=== PATIENT | female | born 1985 | race Caucasian/White ===

== ENCOUNTER 2016-10-30 13:28 | Outpatient (CLI) | payer MEDICARE, MEDICAID | END 2016-10-30 23:59 | disposition home or self-care (01) | DX: M79.7 Fibromyalgia (principal); M46.1 Sacroiliitis, not elsewhere classified; M47.26 Other spondylosis with radiculopathy, lumbar region; K50.119 Crohn's disease of large intestine with unspecified complications; G89.4 Chronic pain syndrome; F44.5 Conversion disorder with seizures or convulsions; F12.10 Cannabis abuse, uncomplicated ==

== ENCOUNTER 2017-01-26 13:58 | Emergency (ER) | payer MEDICARE, MEDICAID ==
[2017-01-26 14:08] VITALS: BP 122/78
[2017-01-26] MEDS ORDERED: DEXAMETHASONE 10 MG/ML VIAL PO STA (15:38)
--- NOTE | 2017-01-26 15:41 | ED Physician Documentation ---
PD HPI BACK PAIN - Stated complaint Stated Complaint: BACK PX/GLF - Chief complaint Chief Complaint: Back Pain - History obtained from History obtained from: Patient - History of Present Illness Timing - onset: How many days ago (3) Timing - duration: Days (3) Timing - details: Abrupt onset, Still present Location: Lower, Right Quality: Pain, Spasm, Sharp, Similar to prior episodes Associated symptoms: No: Fever, Weakness, Numbness, Incontinent of urine, Unable to urinate, Hematuria, Incontinent of stool Improves with: Rest, Ice, Position Worsened by: Movement Contributing factors: Other (The patient was in the shower and she slipped and did the splits and she had acute and persistent pain in the lower back radiating to the right thigh.) Similar symptoms before: Diagnosis (the patient has ankelosing spondylitis.) Recently seen: Not recently seen - Additional information Additional information: 32-year-old female with a history of ankylosing spondylitis has been without the use of her cane for about 3 months and has been doing well with physical therapy. When she was in the shower on Wednesday about 3 days ago she slipped with her feet and her feet spread apart and she strained her right lower back. She now has pain radiating from her lower back into the right thigh. She does not have any bowel or bladder symptoms she does not have any numbness or weakness to the lower extremity. Review of Systems Constitutional: denies: Fever Respiratory: denies: Cough GI: denies: Vomiting : denies: Dysuria, Frequency, Incontinent Skin: denies: Rash Musculoskeletal: reports: Back pain, Extremity pain. denies: Neck pain, Joint pain, Extremity swelling Neurologic: denies: Generalized weakness, Focal weakness, Numbness PD PAST MEDICAL HISTORY - Past Medical History Respiratory: Asthma Neuro: Seizure disorder GI: Crohn's disease Psych: Anxiety, Panic attacks, Post traumatic stress disorder Musculoskeletal: Fibromyalgia, Chronic back pain - Past Surgical History Past Surgical History: Yes General: Cholecystectomy - Present Medications Home Medications: Ambulatory Orders Medication Instructions Recorded Confirmed clonazePAM [KlonoPIN] 1 mg PO TID PRN 04/13/16 01/26/17 Cyclobenzaprine [Flexeril] 10 mg PO TID PRN #20 tablet 01/26/17 Oxycodone HCl/Acetaminophen 1 - 2 each PO Q6HR PRN #20 tablet 01/26/17 [Percocet 5-325 mg Tablet] Tens Unit Electrodes [Tens 1 each MC DAILY 01/26/17 01/26/17 Replacement Body Pads] - Allergies Allergies/Adverse Reactions: Allergies Allergy/AdvReac Type Severity Reaction Status Date / Time hydrocodone Allergy Unknown Verified 01/26/17 14:08 NSAIDS (Non-Steroidal Allergy Unknown Verified 01/26/17 14:08 Anti-Inflamma - Social History Does the pt smoke?: Yes Smoking Status: Current every day smoker PD ED PE NORMAL - Vitals Vital signs reviewed: Yes (normal ) - General General: Alert and oriented X 3, Well developed/nourished, Other (The patient appears to be in pain with smash fixer tone and flattened affect.) - HEENT HEENT: Atraumatic, PERRL - Neck Neck: Supple, no meningeal sign - Respiratory Respiratory: No respiratory distress - Back Back: Other (There is tenderness to the lower lumbar paraspinous muscles on the right side there is not central spine tenderness. The tenderness extends into the sciatic notch on the right.) - Derm Derm: Normal color, Warm and dry, No rash - Extremities Extremities: No deformity, No edema - Neuro Neuro: No motor deficit, No sensory deficit - Psych Psych: Normal mood Results - Vitals Vitals: Vital Signs - 24 hr 01/26/17 14:05 Temperature 36.4 C L Heart Rate 92 Respiratory 12 Rate Blood Pressure 122/78 O2 Saturation 100 Oxygen O2 Source Room air PD MEDICAL DECISION MAKING - ED course Complexity details: reviewed old records, considered differential, d/w patient ED course: 32-year-old female with acute right-sided sciatica is given 10 mg of dexamethasone here in the emergency department we will put her on some Percocet and Flexeril as well. She is encouraged to use ice and stretch to avoid using heating pack and to hydrate. Departure - Departure Disposition: 01 Home, Self Care Clinical Impression: Sciatica of right side Condition: Stable Instructions: ED Sciatica, ED Spasm Back No Trauma Follow-Up: Jessica Dsozua MD [Primary Care Provider] - Prescriptions: Oxycodone HCl/Acetaminophen [Percocet 5-325 mg Tablet] 1 - 2 each PO Q6HR PRN # 20 tablet PRN Reason: Pain Cyclobenzaprine [Flexeril] 10 mg PO TID PRN #20 tablet PRN Reason: Spasms
[2017-01-26] MEDS ORDERED: DEXAMETHASONE 10 MG/ML VIAL ONE (15:49)
== END 2017-01-26 15:58 | disposition home or self-care (01) ==
LOC: ED 13:58
DX: M54.41 Lumbago with sciatica, right side (principal); W18.2XXA Fall in (into) shower or empty bathtub, initial encounter; Y92.012 Bathroom of single-family (private) house as the place of occurrence of the external cause; J45.909 Unspecified asthma, uncomplicated; K50.90 Crohn's disease, unspecified, without complications; M79.7 Fibromyalgia; F17.200 Nicotine dependence, unspecified, uncomplicated
CPT/HCPCS: 99282; 99283

== ENCOUNTER 2017-04-18 13:34 | Emergency (ER) | payer MEDICARE, MEDICAID ==
[2017-04-18 13:45] VITALS: BP 120/21
[2017-04-18] MEDS ORDERED: oxyCOD/ACETAMIN 5 MG/325 MG TABLET PO STA (13:57)
[2017-04-18] MEDS ORDERED: DEXAMETHASONE 10 MG/ML VIAL PO STA (13:57)
--- NOTE | 2017-04-18 14:00 | ED Physician Documentation ---
History of Present Illness - Stated complaint Stated Complaint: HIP PAIN - Chief complaint Chief Complaint: Ext Problem - History obtained from History obtained from: Patient - History of Present Illness Timing: Other (32-year-old woman with long-standing back pain got worse 2 weeks ago in physical therapy, felt a pop and now has persistent severe pain radiating down the front of the thigh to the knee into the inside of the foot without weakness, numbness, or tingling. She does not have any bowel or bladder incontinence or fevers.) Review of Systems Constitutional: denies: Fever, Chills GI: denies: Abdominal Pain, Nausea, Vomiting : denies: Now EGA PD PAST MEDICAL HISTORY - Past Medical History Past Medical History: Yes Respiratory: Asthma Neuro: Seizure disorder GI: Crohn's disease Psych: Anxiety, Panic attacks, Post traumatic stress disorder Musculoskeletal: Fibromyalgia, Chronic back pain - Past Surgical History Past Surgical History: Yes General: Cholecystectomy - Present Medications Home Medications: Ambulatory Orders Medication Instructions Recorded Confirmed clonazePAM [KlonoPIN] 1 mg PO TID PRN 04/13/16 04/18/17 Tens Unit Electrodes [Tens 1 each MC DAILY 01/26/17 04/18/17 Replacement Body Pads] Oxycodone HCl/Acetaminophen 1 - 2 tab PO Q4H PRN #15 tablet 04/18/17 [Percocet 5-325 mg Tablet] - Allergies Allergies/Adverse Reactions: Allergies Allergy/AdvReac Type Severity Reaction Status Date / Time hydrocodone Allergy Unknown Verified 04/18/17 13:45 NSAIDS (Non-Steroidal Allergy Unknown Verified 04/18/17 13:45 Anti-Inflamma - Social History Does the pt smoke?: Yes Smoking Status: Current every day smoker Does the pt drink ETOH?: No Does the pt have substance abuse?: No - Immunizations Immunizations are current?: Yes - POLST Patient has POLST: No PD ED PE NORMAL - Vitals Vital signs reviewed: Yes - General General: Alert and oriented X 3, Other (Appears uncomfortable, especially with motion) - Abdomen Abdomen: Soft, Non tender - Back Back: Other (Tender to the paralumbar musculature in the low back.) - Extremities Extremities: Other (She has hyperesthesia in the anterior right leg and lateral calf, medial calf sensation is symmetric. Reflexes are symmetric.) - Neuro Neuro: Alert and oriented X 3, Normal speech - Psych Psych: Normal mood, Normal affect Results - Vitals Vitals: Vital Signs - 24 hr 04/18/17 13:39 Temperature 36.3 C L Heart Rate 86 Respiratory 16 Rate Blood Pressure 120/21 L O2 Saturation 100 Oxygen O2 Source Room air PD MEDICAL DECISION MAKING - ED course ED course: This patient has seemingly uncomplicated musculoskeletal back pain. The patient has no "red flags." Specifically denies IV drug use, fevers, incontinence, saddle anesthesia. Spinal epidural abscess was considered, given that the patient has no fever, is not diabetic, has no spinal tenderness, does not use IV drugs, and has no bilateral neurologic symptoms, the diagnosis of spinal epidural abscess is considered exceedingly unlikely. The [place] prescription monitoring program was queried with regard to this patient. No concerning findings were found. Departure - Departure Disposition: 01 Home, Self Care Clinical Impression: Sciatica of right side Condition: Good Record reviewed to determine appropriate education?: Yes Instructions: ED Sciatica Prescriptions: Oxycodone HCl/Acetaminophen [Percocet 5-325 mg Tablet] 1 - 2 tab PO Q4H PRN #15 tablet PRN Reason: Pain Comments: Call your doctor to arrange a follow-up appointment, make the next available appointment. In the interim, return anytime if worse or if new symptoms develop. Do not drink or drive while taking narcotic pain medication. Note that many narcotic pain relievers also contain Tylenol/acetaminophen. Please ensure that your total dose of acetaminophen from all sources does not exceed 3 g (3000 mg) per day. You may get constipated while on this medication. Take a stool softener such as Colace twice a day while you are on it. Also add an [id number] laxative such as senna or MiraLAX on any day that you do not have a bowel movement. If you received a narcotic pain medication or sedative while in the emergency department, do not drive for the next 24 hours.
[2017-04-18] MEDS ORDERED: oxyCOD/ACETAMIN 5 MG/325 MG TABLET PO ONE (14:04)
[2017-04-18] MEDS ORDERED: DEXAMETHASONE 10 MG/ML VIAL ONE (14:05)
== END 2017-04-18 14:15 | disposition home or self-care (01) ==
LOC: ED 13:34
DX: M54.41 Lumbago with sciatica, right side (principal); J45.909 Unspecified asthma, uncomplicated; G40.909 Epilepsy, unspecified, not intractable, without status epilepticus; K50.90 Crohn's disease, unspecified, without complications; M79.7 Fibromyalgia; F17.200 Nicotine dependence, unspecified, uncomplicated
CPT/HCPCS: 99283; A9270

== ENCOUNTER 2017-08-17 08:00 | Outpatient (CLI) | payer MEDICARE, MEDICAID | END 2017-08-17 08:01 | disposition home or self-care (01) | LOC: LAB.WCP 08:00 | PROVIDERS: ATTEND Family Medicine | DX: C40.21 Malignant neoplasm of long bones of right lower limb (principal) | CPT/HCPCS: 36415; 85651 ==

== ENCOUNTER 2018-04-17 13:00 | Emergency (ER) | payer MEDICARE, MEDICAID ==
[2018-04-17 13:16] VITALS: BP 128/73
[2018-04-17] MEDS ORDERED: LIDOCAINE PATCH 5% TOP PRN (14:22)
[2018-04-17] MEDS ORDERED: oxyCODONE 5 MG TABLET PO STA (14:44)
--- NOTE | 2018-04-17 16:22 | XRAY Report ---
Reason: groin and prox femur pain, hx stroma surgery Procedure Date: 04/17/2018 Accession Number: [id number] / [id number] Procedure: XR - Femur 2V RT CPT Code: FULL RESULT: EXAM: RIGHT FEMUR RADIOGRAPHY. EXAM DATE: 04/17/2018 03:18 PM. CLINICAL HISTORY: Right groin and proximal femur pain. History of stroma surgery in October 2017. COMPARISON: Femur 2 view right 06/21/2017 10:37 AM, lower extremity, no joint without contrast 05/25/2017 1:09 PM. TECHNIQUE: 2 views. FINDINGS: Bones: There is a sclerotic bony focus in the proximal femoral shaft, with surrounding lucency. There is thickening of the cortex and surrounding sclerosis. The sclerotic focus appears eccentric, and may lie within the cortex. The findings are suggestive of an osteoid osteoma. The differential diagnosis includes postoperative change and osteomyelitis. There is mild sclerosis and cortical thickening in this region on the prior x-ray from 06/21/2017. Joints: The joint space of the right hip is preserved. Soft Tissues: Normal. No soft tissue swelling. IMPRESSION: Appearances in the proximal femur are suggestive of an osteoid osteoma. The differential diagnosis includes postoperative change, and osteomyelitis. RADIA
--- NOTE | 2018-04-17 16:34 | ED Physician Documentation ---
History of Present Illness - Stated complaint Stated Complaint: RT LEG/HIP PX - Chief complaint Chief Complaint: Ext Problem - Additonal information Additional information: hx from pt 33 female hx surgery R femur to remove a stroma (non malignant) at [facility] in October doing well recently increased pain under surgical scar (prox lateral thigh) but also to inguinal region near hip flexor tendon no fever on injury no skin infection she feels the cement may be dislodged Review of Systems Constitutional: denies: Fever, Chills Cardiac: denies: Chest pain / pressure Respiratory: denies: Dyspnea GI: denies: Abdominal Pain Musculoskeletal: reports: Extremity pain PD PAST MEDICAL HISTORY - Past Medical History Past Medical History: Yes Respiratory: Asthma GI: Crohn's disease Psych: Anxiety, Panic attacks, Post traumatic stress disorder Musculoskeletal: Fibromyalgia, Chronic back pain - Past Surgical History Past Surgical History: Yes General: Cholecystectomy - Present Medications Home Medications: Ambulatory Orders Medication Instructions Recorded Confirmed clonazePAM [KlonoPIN] 1 mg PO TID PRN 04/13/16 04/18/17 Tens Unit Electrodes [Tens 1 each MC DAILY 01/26/17 04/18/17 Replacement Body Pads] Oxycodone HCl/Acetaminophen 1 - 2 tab PO Q4H PRN #15 tablet 04/18/17 [Percocet 5-325 mg Tablet] Lidocaine Patch 5% [Lidoderm Patch] 1 each TOP DAILY PRN #10 patch 04/17/18 Oxycodone HCl/Acetaminophen 1 each PO Q6HR PRN #15 tablet 04/17/18 [Percocet 5-325 mg Tablet] - Allergies Allergies/Adverse Reactions: Allergies Allergy/AdvReac Type Severity Reaction Status Date / Time hydrocodone Allergy Unknown Verified 04/18/17 13:45 NSAIDS (Non-Steroidal Allergy Unknown Verified 04/18/17 13:45 Anti-Inflamma - Social History Does the pt smoke?: Yes Smoking Status: Current every day smoker Does the pt drink ETOH?: No Does the pt have substance abuse?: No - Immunizations Immunizations are current?: Yes - POLST Patient has POLST: No PD ED PE NORMAL - Vitals Vital signs reviewed: Yes - Cardiac Cardiac: RRR - Respiratory Respiratory: No respiratory distress, Clear bilaterally - Extremities Extremities: Other (RLE - no deformity, no erythema, no warmth, no open sores, storng pedal pulse, TTP lateral R thigh under scar and also to inguinal region with a single minimally tender smooth and mobile inguinal node) Results - Vitals Vitals: Vital Signs - 24 hr 04/17/18 13:11 Temperature 36.9 C Heart Rate 99 Respiratory 18 Rate Blood Pressure 128/73 O2 Saturation 96 Oxygen O2 Source Room air PD MEDICAL DECISION MAKING - ED course ED course: pt has an BENSON which I reviewed she was rxed percocet after her surgery in October and then gradually weaned off by PMD last rx January no ER visits at all since her surgery and all rx by her PMD given that there is a potentially new bone lesion which would be excrutiantingly painful, feel in this case it is appropriate to rx a few perocet for the pt until she can make fup with her surgeons at [facility] and her PMD can resume responsibility for any controlled substance rx - Sepsis Event Vital Signs: Vital Signs - 24 hr 04/17/18 13:11 Temperature 36.9 C Heart Rate 99 Respiratory 18 Rate Blood Pressure 128/73 O2 Saturation 96 Oxygen O2 Source Room air Departure - Departure Disposition: 01 Home, Self Care Clinical Impression: Abnormal x-ray Condition: Good Follow-Up: Jessica Dsouza MD [Primary Care Provider] - Prescriptions: Oxycodone HCl/Acetaminophen [Percocet 5-325 mg Tablet] 1 each PO Q6HR PRN #15 tablet PRN Reason: Severe Pain Lidocaine Patch 5% [Lidoderm Patch] 1 each TOP DAILY PRN #10 patch PRN Reason: Pain Comments: The xray does appear abnormal. The radiologist is not certain if there is a new bone lesion called osteoid osteoma or if these are all post operative changes, or (less likely given your exam) a bone infection You will need to follow up with your specialist at the [facility] We have given you copies of your xrays to take with you. And I have prescribed pain medication to ease your pain until you can be seen. I prescribed lidocaine patches and percocet. Percocet is a controlled substance and should only be used for very severe pain. It can be addicting. Narcotics are highly regulated and should not be prescribed by different doctors. So, after this weekend, your PMD will need to be the provider to determine the need and prescription for any future narcotics
== END 2018-04-17 17:18 | disposition home or self-care (01) ==
LOC: ED 13:00
DX: R93.7 Abnormal findings on diagnostic imaging of other parts of musculoskeletal system (principal); M25.552 Pain in left hip; F17.200 Nicotine dependence, unspecified, uncomplicated
CPT/HCPCS: 73552; 99283; A9270

== ENCOUNTER 2019-05-16 14:20 | Emergency (ER) | payer MEDICARE, MEDICAID ==
--- NOTE | 2019-05-16 15:05 | ED Physician Documentation ---
History of Present Illness - Stated complaint Stated Complaint: R KNEE PX - Chief complaint Chief Complaint: Ext Problem - Additonal information Additional information: This is a 34-year-old female with history of Crohn's and a mass or tumor in the muscle and proximal femur which was surgically excised earlier in the year, who presents with pain around her knee. Patient states that she has been going to physical therapy, and after activity such as sitting up ands getting out of a chair she has some pain in her distal quadriceps. Her physical therapist thinks this is related to the strengthening and use of her quadriceps, the patient has been having some pain in this region for 2.5 weeks and she is hoping to have her pain controlled. She denies any weakness or tingling in the leg. She has been taking Tylenol, and 5 mg of Flexeril at night. She states she has an allergy to nonsteroidal anti-inflammatories and methocarbamol. Review of Systems Constitutional: denies: Fever Musculoskeletal: reports: Extremity pain PD PAST MEDICAL HISTORY - Past Medical History Respiratory: Asthma GI: Crohn's disease Psych: Anxiety, Panic attacks, Post traumatic stress disorder Musculoskeletal: Fibromyalgia, Chronic back pain - Past Surgical History Past Surgical History: Yes General: Cholecystectomy - Present Medications Home Medications: Ambulatory Orders Medication Instructions Recorded Confirmed Tens Unit Electrodes [Tens 1 each MC DAILY 01/26/17 04/18/17 Replacement Body Pads] Acetaminophen [Tylenol Extra 06/24/18 Strength] Methocarbamol 06/24/18 Multivitamin [Multiple Vitamins] 06/24/18 Ondansetron Odt [Zofran] 4 mg TL Q6H PRN #10 tablet 06/24/18 Oxycodone HCl/Acetaminophen 1 - 2 each PO Q6H PRN #14 tablet 06/24/18 [Percocet 5-325 mg Tablet] traZODone [Desyrel] 06/24/18 Cyclobenzaprine [Flexeril] 10 mg PO TID PRN #20 tablet 05/16/19 Lidocaine Ointment 5% [Xylocaine 1 applic TOP DAILY PRN 5 Days #1 05/16/19 Ointment 5%] tube - Allergies Allergies/Adverse Reactions: Allergies Allergy/AdvReac Type Severity Reaction Status Date / Time hydrocodone Allergy Unknown Verified 06/24/18 18:30 NSAIDS (Non-Steroidal Allergy Unknown Verified 06/24/18 18:30 Anti-Inflamma - Social History Does the pt smoke?: Yes Smoking Status: Current every day smoker Does the pt drink ETOH?: No Does the pt have substance abuse?: No - Immunizations Immunizations are current?: Yes - POLST Patient has POLST: No PD ED PE NORMAL - Vitals Vital signs reviewed: Yes - General General: Alert and oriented X 3, No acute distress - HEENT HEENT: PERRL - Neck Neck: Supple, no meningeal sign - Cardiac Cardiac: Other (Regular rate rhythm on my exam) - Respiratory Respiratory: No respiratory distress - Abdomen Abdomen: Non distended - Derm Derm: Warm and dry - Extremities Extremities: Other (Over the right proximal thigh there is a well-healed surgical incision. The knees appear symmetric bilaterally. There is no pain along the knee joint, patient has good strength with knee extension and flexion, ankle dorsiflexion and plantarflexion. She has some tenderness of the distal quadriceps muscle. No rash or bruising, no erythema. No pain with passive range of motion of the knee. Limb is neurovascularly intact.) - Neuro Neuro: Alert and oriented X 3 - Psych Psych: Normal mood, Normal affect Results - Vitals Vitals: Oxygen O2 Source Room air - Rads (name of study) Knee XR R Radiology: Other (No acute fracture or dislocation.) PD MEDICAL DECISION MAKING - ED course ED course: Pt presents with somewhat exacerbated sub-acute to chronic leg pain. The pain is anterior and she has no redness or swelling to suggest DVT. XR is unremarkable. It does sound like strain/overuse injury, and she is being followed by a provider and PT for this. I recommended supportive care, rest, ice, and continued follow up with her outpatient providers. I prescribed lidocaine and flexeril. I discussed return precautions and pt was discharged home. Departure - Departure Disposition: 01 Home, Self Care Clinical Impression: Right thigh pain Condition: Good Instructions: ED RICE Follow-Up: Your,PCP [Other] Prescriptions: Cyclobenzaprine [Flexeril] 10 mg PO TID PRN #20 tablet PRN Reason: Spasms Lidocaine Ointment 5% [Xylocaine Ointment 5%] 1 applic TOP DAILY PRN 5 Days #1 tube PRN Reason: Pain Comments: You were seen today for thigh/knee pain. Your x-ray does not show signs of fracture. This may be related to overuse or strain/sprain. Please follow-up with your primary care provider and PCP, and consider seeing a sports medicine provider given your ongoing pain in this region. You can try taking Flexeril for your discomfort in addition to the Tylenol. If you develop signs of infec tion or other concerning symptoms please return to the emergency department. Discharge Date/Time: 05/16/19 16:34
--- NOTE | 2019-05-16 16:01 | XRAY Report ---
Reason: R knee pain, hx prox femur mass/tumor Procedure Date: 05/16/2019 Accession Number: [id number] / [id number] Procedure: XR - Knee 3 View RT CPT Code: FULL RESULT: EXAM: RIGHT KNEE RADIOGRAPHY EXAM DATE: 05/16/2019 03:44 PM. CLINICAL HISTORY: R knee pain, hx prox femur mass/tumor. COMPARISON: [facility] 11/09/2016 9:34 AM. TECHNIQUE: 3 views. FINDINGS: Bones: Normal. No fractures or bone lesions. Joints: Normal. No effusion. No subluxations. Soft Tissues: Normal. No soft tissue swelling. IMPRESSION: No acute displaced fracture or malalignment. RADIA
[2019-05-16] MEDS ORDERED: LIDOCAINE PATCH 5% TOP STA (16:13)
[2019-05-16 16:24] VITALS: BP 125/89
== END 2019-05-16 16:34 | disposition home or self-care (01) ==
LOC: ED 14:20
DX: M79.651 Pain in right thigh (principal); G89.29 Other chronic pain; M79.7 Fibromyalgia; F17.200 Nicotine dependence, unspecified, uncomplicated
CPT/HCPCS: 73562; 99283; 99284; A9270

== ENCOUNTER 2023-12-14 12:42 | Outpatient (CLI) | payer MEDICARE, MEDICAID ==
--- NOTE | 2023-12-14 15:12 | XRAY Report ---
PROCEDURE: Wrist 3+V LT INDICATIONS: L WRIST PAIN TECHNIQUE: 4 views of the wrist were acquired. COMPARISON: None. FINDINGS: Bones: No fractures or dislocations. No suspicious bony lesions. Soft tissues: No suspicious soft tissue calcifications or masses. IMPRESSION: No acute bony abnormality. If pain persists with conservative management, consider repeat x-ray in 10 -14 days or cross-sectional imaging. Reviewed by: Maxi Galindo MD on 12/14/2023 3:10 PM PDT Approved by: Maxi Galindo MD on 12/14/2023 3:10 PM PDT Station ID: [id number]
== END 2023-12-14 12:43 | disposition home or self-care (01) ==
LOC: DI.N 12:42
PROVIDERS: ATTEND Physician Assistant
DX: M25.532 Pain in left wrist (principal)